=== PATIENT | female | born 1985 | race Caucasian/White ===

== ENCOUNTER 2020-10-29 09:13 | Emergency (ER) | payer SELFPAY ==
[~2020-10-29] VITALS: Ht 162.6 cm; Wt 63.0 kg
--- NOTE | 2020-10-29 09:35 | NUR ---
ABDOMINAL CRAMPING X 3 DAYS,DENIES OTHER ACCOMPANYING SX. PT AAOX4, VSS. RR EVEN & UNLABORED. PT SEEN & EVAL'D BY DR. SCOTT. WILL CONT TO MONITOR.
[2020-10-29 09:38] LABS: BASOPHILS % (AUTO) 0.4 % (0.0-2.0); EOSINOPHILS % (AUTO) 1.1 % (0.0-6.0); HEMATOCRIT 34 % (33-45); LYMPHOCYTES # (AUTO) 1.4 K/uL (0.8-4.8); LYMPHOCYTES % (AUTO) 24.5 % (20.0-44.0); MEAN CORPUSCULAR HGB CONC 32 g/dl (31.0-36.0); MEAN CORPUSCULAR VOLUME 77 fL (82-100); MONOCYTES # (AUTO) 0.5 K/uL (0.1-1.30); MONOCYTES % (AUTO) 8.9 % (2.0-12.0); NEUTROPHILS # (AUTO) 3.8 K/uL (1.8-8.9); NEUTROPHILS % (AUTO) 65.1 % (43.0-81.0); PLATELET COUNT (AUTO) 248 K/uL (150-450); RED BLOOD CELL COUNT(AUTO) 4.48 MIL/uL (4.0-5.2); WHITE BLOOD COUNT (AUTO) 5.9 K/uL (4.3-11.0)
[2020-10-29 09:49] LABS: BILIRUBIN,URINE Negative (NEGATIVE); COLOR,URINE DARK YELLOW (YELLOW); CREATININE 0.7 mg/dL (0.6-1.3); LEUKOCYTE ESTERASE ,URINE Negative (NEGATIVE); NITRITE, URINE Negative (NEGATIVE); PH,URINE 5.5 (5.0-8.0); POTASSIUM 3.5 mmol/L (3.5-5.1); PROTEIN,URINE Trace mg/dl (NEGATIVE); UGLUCOSE Negative (NEGATIVE); UROBILINOGEN,URINE 0.2 EU/dL (0.2)
[2020-10-29 09:55] LABS: BILIRUBIN,DIRECT 0.1 mg/dL (0.0-0.2); BILIRUBIN,TOTAL 0.5 mg/dL (0.2-1.0)
[2020-10-29 10:02] LABS: RBC,URINE 0-2 /HPF (0-2); SQUAMOUS EPITHELIAL CELL,UR Moderate /HPF (None Seen); WBC,URINE 0-2 /HPF (0-3)
[2020-10-29 10:03] LABS: BACTERIA,URINE Moderate /HPF (None Seen)
[2020-10-29] MEDS ORDERED: IOHEXOL-300 100 ML VIAL IV ONE (10:03)
[2020-10-29] MEDS ORDERED: IV NS 0.9% 250 ML IV ONE (10:03)
[2020-10-29] MEDS ORDERED: DICYCLOMINE HCL INJ 20 MG/2 ML AMPUL IM ONE ×2 (10:30→10:39)
[2020-10-29] MEDS ORDERED: IV NS 0.9% 1,000 ML IV ONE (10:30)
[2020-10-29] MEDS ORDERED: IBUP-1955 PO (11:29)
[2020-10-29] MEDS ORDERED: POLY17PO4 PO (11:29)
[2020-10-29] MEDS ORDERED: MORPHINE SULFATE INJ 2 MG/ML DISP.SYRIN IV ONE (12:00)
[2020-10-29] MEDS ORDERED: ONDANSETRON HCL/PF 4 MG/2 ML VIAL IM ONE (12:00)
[2020-10-29] MEDS ORDERED: ONDANSETRON HCL/PF 4 MG/2 ML VIAL ONE (12:09)
[2020-10-29] MEDS ORDERED: MORPHINE SULFATE INJ 4 MG/ML DISP.SYRIN ONE (12:09)
--- NOTE | 2020-10-29 12:13 | NUR ---
MEDICATED FOR ABD PAIN PER ERMD ORDER, PT ROHAN WELL. PRINCIPAL PLANNER AT BS FOR EVAL.
[2020-10-29] MEDS ORDERED: HYDR-4303 PO (13:31)
--- NOTE | 2020-10-29 13:49 | NUR ---
Patient discharged to home in stable condition. Written and verbal after care instructions given. Patient verbalizes understanding of instruction. IV removed. Catheter intact and site benign. Pressure and 4x4 applied to site. No bleeding noted.
[2020-10-29 13:50] VITALS: BP 118/73
== END 2020-10-29 13:50 | disposition home or self-care (01) ==
LOC: ER 09:45
DX: N83.202 Unspecified ovarian cyst, left side (principal); N83.201 Unspecified ovarian cyst, right side; K59.00 Constipation, unspecified; D25.9 Leiomyoma of uterus, unspecified; Z79.899 Other long term (current) drug therapy
CPT/HCPCS: 36415; 74177; 76705; 76856; 80048; 80076; 81001; 83690; 84703; 85025; 87086; 96361; 96372 ×2; 96374; 99285; J0500; J2270; J2405; J7030; J7050; Q9967